=== PATIENT | male | born 1975 | race Caucasian/White ===

== ENCOUNTER 2021-02-04 18:38 | Emergency (ER) | payer SELFPAY ==
--- NOTE | 2021-02-04 19:58 | EDPHYS ---
Physician Documentation [facility] Name: Michel Brown Age: 45 yrs Sex: Male : 1975 Arrival Date: 02/04/2021 Time: 18:40 Bed 13 Private MD: ED Physician Mike Goodman HPI: 02/04 19:56 This 45 yrs old Male presents to ER via Ambulatory with complaints of pm1 Shingles. 19:56 The patient's rash thought to be caused by an unknown cause. The rash is located on the pm1 left elbow. The rash can be described as vesicular. Onset: The symptoms/episode began/occurred 2 day(s) ago. Associated signs and symptoms: Pertinent positives: itching, Pain Pertinent negatives: nausea, vomiting. Severity of symptoms: in the emergency department the symptoms are unchanged Pain is currently a 5 / 10. Treatment given at home: None. The patient has not experienced similar symptoms in the past. The patient has not recently seen a physician. Historical: - Allergies: 18:57 No Known Allergies; ca1 - Home Meds: 18:57 None [Active]; ca1 - PMHx: 18:57 None; ca1 - PSHx: 18:57 None; ca1 - Immunization history:: Client reports having NOT received the Covid vaccine. Flu vaccine is not up to date. - Social history:: Smoking status: Patient reports the use of cigarette tobacco products, smokes one-half pack cigarettes per day. ROS: 19:56 Constitutional: Negative for fever, chills, and weight loss, Eyes: Negative for injury, pm1 pain, redness, and discharge, ENT: Negative for injury, pain, and discharge, Cardiovascular: Negative for chest pain, palpitations, and edema, Respiratory: Negative for shortness of breath, cough, wheezing, and pleuritic chest pain, Abdomen/GI: Negative for abdominal pain, nausea, vomiting, diarrhea, and constipation, Back: Negative for injury and pain, MS/Extremity: Negative for injury and deformity. 19:56 Neuro: Negative for headache, weakness, numbness, tingling, and seizure. 19:56 Skin: Positive for rash, of the left elbow. Exam: 19:56 Constitutional: This is a well developed, well nourished patient who is awake, alert, pm1 and in no acute distress. Head/Face: Normocephalic, atraumatic. 19:56 Eyes: Exam is negative for Extraocular movements: no acute changes, Conjunctiva: normal. 19:56 ENT: Mouth: Lips: normal, Oral mucosa: normal, pink and intact, moist. 19:56 Cardiovascular: Rate: normal, Rhythm: regular, Pulses: no pulse deficits are appreciated. 19:56 Respiratory: Exam negative for acute changes, respiratory distress, shortness of breath. 19:56 Skin: Appearance: normal except for affected area, consistent with zoster, on the left elbow. 19:56 Neuro: Orientation: is normal, Mentation: is normal, Motor: is normal, moves all fours, Sensation: is normal, no obvious gross deficits. Vital Signs: 18:56 BP 128 / 89; Pulse 97; Resp 18 S; Temp 97.8(TE); Pulse Ox 99% on R/A; Weight 87.09 kg ca1 (R); Height 6 ft. 2 in. (187.96 cm) (R); Pain 6/10; 18:56 Body Mass Index 24.65 (87.09 kg, 187.96 cm) ca1 MDM: 19:45 Patient medically screened. pm1 19:56 Data reviewed: vital signs. Data interpreted: Pulse oximetry: on room air is 99 %. pm1 Interpretation: normal. Counseling: I had a detailed discussion with the patient and/or guardian regarding: the historical points, exam findings, and any diagnostic results supporting the discharge/admit diagnosis, the need for outpatient follow up, a family practitioner, to return to the emergency department if symptoms worsen or persist or if there are any questions or concerns that arise at home. Administered Medications: 20:00 Drug: predniSONE 60 mg Route: PO; rr5 20:08 Follow up: Response: Medication administered at discharge. rr5 20:00 Drug: valACYclovir 1000 mg Route: PO; rr5 20:08 Follow up: Response: Medication administered at discharge. rr5 20:00 Drug: Benadryl (diphenhydrAMINE) 25 mg Route: PO; rr5 20:08 Follow up: Response: Medication administered at discharge. rr5 Disposition: 02/04/21 19:58 Discharged to Home. Impression: Zoster [herpes zoster]. - Condition is Stable. - Discharge Instructions: Shingles. - Prescriptions for Valtrex 1 g Oral Tablet - take 1 tablet by ORAL route every 8 hours for 7 days; 21 tablet. Medrol (Steve) 4 mg Oral Tablets, Dose Pack - take 1 tablet by ORAL route as directed - follow package instructions; 1 packet. - Medication Reconciliation Form, Thank You Letter, Antibiotic Education, Prescription Opioid Use form. - Follow up: Emergency Department; When: As needed; Reason: Worsening of condition. Follow up: Private Physician; When: 2 - 3 days; Reason: Recheck today's complaints, Continuance of care, Re-evaluation by your physician. - Problem is new. - Symptoms have improved. Signatures: Zak Blount NP COMPLIANCE OFFICER pm1 You Kohli RN RN rr5 Marlin Mueller RN RN ca1 Corrections: (The following items were deleted from the chart) 20:08 19:58 02/04/2021 19:58 Discharged to Home. Impression: Zoster [herpes zoster]. rr5 Condition is Stable. Forms are Medication Reconciliation Form, Thank You Letter, Antibiotic Education, Prescription Opioid Use. Follow up: Emergency Department; When: As needed; Reason: Worsening of condition. Follow up: Private Physician; When: 2 - 3 days; Reason: Recheck today's complaints, Continuance of care, Re-evaluation by your physician. Problem is new. Symptoms have improved. pm1
--- NOTE | 2021-02-04 19:58 | ER ---
Nurse's Notes [facility] Name: Michel Brown Age: 45 yrs Sex: Male : 1975 Arrival Date: 02/04/2021 Time: 18:40 Bed 13 Private MD: Diagnosis: Zoster [herpes zoster] Presentation: 02/04 18:56 Chief complaint: Patient states: Rash on L inner arm, chest and stomach x 2 days. ca1 Coronavirus screen: Client denies travel out of the [place] in the last 14 days. At this time, the client does not indicate any symptoms associated with coronavirus-19. Ebola Screen: Patient negative for fever greater than or equal to 101.5 degrees Fahrenheit, and additional compatible Ebola Virus Disease symptoms Patient denies exposure to infectious person. Patient denies travel to an Ebola-affected area in the 21 days before illness onset. No symptoms or risks identified at this time. Initial Sepsis Screen: Does the patient meet any 2 criteria? No. Patient's initial sepsis screen is negative. Does the patient have a suspected source of infection? No. Patient's initial sepsis screen is negative. Risk Assessment: Do you want to hurt yourself or someone else? Patient reports no desire to harm self or others. Onset of symptoms was February 04, 2021. 18:56 Method Of Arrival: Ambulatory ca1 18:56 Acuity: ZORAIDA 4 ca1 Historical: - Allergies: 18:57 No Known Allergies; ca1 - Home Meds: 18:57 None [Active]; ca1 - PMHx: 18:57 None; ca1 - PSHx: 18:57 None; ca1 - Immunization history:: Client reports having NOT received the Covid vaccine. Flu vaccine is not up to date. - Social history:: Smoking status: Patient reports the use of cigarette tobacco products, smokes one-half pack cigarettes per day. Screenin:07 Abuse screen: Denies threats or abuse. Denies injuries from another. Nutritional rr5 screening: No deficits noted. Tuberculosis screening: No symptoms or risk factors identified. Fall Risk None identified. Total Agee Fall Scale indicates No Risk (0-24 pts). Assessment: 20:00 General: Appears in no apparent distress. comfortable, Behavior is calm, cooperative, rr5 appropriate for age. Pain: Complains of pain in left elbow. Neuro: Level of Consciousness is awake, alert, obeys commands, Oriented to person, place, time. Cardiovascular: Capillary refill < 3 seconds Patient's skin is warm and dry. Respiratory: Airway is patent Respiratory effort is even, unlabored, Respiratory pattern is regular, symmetrical. Derm: Skin temperature is warm Rash noted that is macular, itchy, red, raised, on left elbow. 20:07 Reassessment: Patient appears in no apparent distress at this time. Patient is alert, rr5 oriented x 3, equal unlabored respirations, skin warm/dry/pink. discharge instruction given and explained without complaints made. Vital Signs: 18:56 BP 128 / 89; Pulse 97; Resp 18 S; Temp 97.8(TE); Pulse Ox 99% on R/A; Weight 87.09 kg ca1 (R); Height 6 ft. 2 in. (187.96 cm) (R); Pain 6/10; 18:56 Body Mass Index 24.65 (87.09 kg, 187.96 cm) ca1 ED Course: 18:40 Patient arrived in ED. mr 18:57 Triage completed. ca1 18:57 Arm band placed on right wrist. ca1 19:37 Zak Blount NP is PHCP. pm1 19:37 Mike Goodman MD is Attending Physician. pm1 20:00 You Kohli RN is Primary Nurse. rr5 20:00 Patient has correct armband on for positive identification. Bed in low position. rr5 20:00 No provider procedures requiring assistance completed. Patient did not have IV access rr5 during this emergency room visit. Administered Medications: 20:00 Drug: predniSONE 60 mg Route: PO; rr5 20:08 Follow up: Response: Medication administered at discharge. rr5 20:00 Drug: valACYclovir 1000 mg Route: PO; rr5 20:08 Follow up: Response: Medication administered at discharge. rr5 20:00 Drug: Benadryl (diphenhydrAMINE) 25 mg Route: PO; rr5 20:08 Follow up: Response: Medication administered at discharge. rr5 Outcome: 19:58 Discharge ordered by . pm1 20:00 Discharged to home ambulatory, with family. rr5 20:00 Condition: stable 20:00 Discharge instructions given to patient, Instructed on discharge instructions, follow up and referral plans. medication usage, Demonstrated understanding of instructions, follow-up care, medications, Prescriptions given X 2. 20:08 Patient left the ED. rr5 Signatures: Karine Santizo MineZak, [employer] PLANT OPERATOR [employer] POWER PLANT OPERATOR pm1 You Kohli, RN RN rr5 Marlin Mueller RN RN ca1
[2021-02-04] MEDS ORDERED: predniSONE 20 MG TAB ONE (20:18)
[2021-02-04] MEDS ORDERED: DIPHENHYDRAMINE 25 MG TAB/CAP ONE (20:18)
[2021-02-04] MEDS ORDERED: VALACYCLOVIR 500 MG TAB ONE (20:19)
[2021-02-04 20:33] VITALS: BP 128/89; TEMP 97.8; O2SAT 99
== END 2021-02-04 20:08 | disposition home or self-care (01) ==
LOC: ER 18:38
DX: B02.9 Zoster without complications (principal); F17.210 Nicotine dependence, cigarettes, uncomplicated
CPT/HCPCS: 99283; J7512

== ENCOUNTER 2021-09-21 14:14 | Inpatient (IN) | payer OTHER, SELFPAY ==
[2021-09-21] MEDS ORDERED: MIDAZOLAM HCL 2 MG/2 ML INJ ONE ×2 (14:23)
[2021-09-21] MEDS ORDERED: NA CHLORIDE 0.9% 1,000 ML ONE (14:37)
[2021-09-21] MEDS ORDERED: TETANUS & DIPHTHERIA TOX,ADULT 0.5 ML VIAL ONE (14:37)
[2021-09-21] MEDS ORDERED: levETIRAcetam 1,000 MG in NA CHLORIDE 0.9% 100 ML IV ONE (14:45)
[2021-09-21 14:47] LABS: Absolute Lymphocytes (CBC) 2.1 K/uL (0.7-4.9); Hematocrit 40.8 % (39.6-49.0); Lymphocytes % 22.2 % (15.3-44.8); MPV 7.1 fL (7.6-11.3); RBC Red Blood Cell Count 4.48 M/uL (4.33-5.43)
[2021-09-21 15:06] LABS: Potassium 4.6 mmol/L (3.5-5.1)
[2021-09-21] MEDS ORDERED: propofoL 1,000 MG/100 ML VIAL IV ONE (15:37)
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
--- NOTE | 2021-09-21 16:07 | RAD REPORT ---
EXAM DESCRIPTION: Franck Single View09/21/2021 3:57 pm CLINICAL HISTORY: Device placement endotracheal tube placement IMPRESSION: An endotracheal tube has been inserted with its tip 2.9 centimeters above the top of the aortic arch. Nasogastric tube within the proximal stomach. Bilateral lower lobe atelectasis
--- NOTE | 2021-09-21 16:07 | RAD REPORT ---
EXAM DESCRIPTION: Franck Single View09/21/2021 3:57 pm CLINICAL HISTORY: Device placement endotracheal tube placement IMPRESSION: An endotracheal tube has been advanced. The tip lies 1.5 centimeters above the top of th e aortic arch. Nasogastric tube with its tip in the proximal stomach
[2021-09-21] MEDS ORDERED: LORazepam 2 MG/ML VIAL ONE ×2 (16:20→17:51)
[2021-09-21] MEDS ORDERED: KETAMINE HCL 500 MG/5 ML VIAL ONE (17:18)
[2021-09-21 17:25] LABS: Urine Blood Negative (Negative); Urine Glucose Negative (Negative); Urine Protein Negative (Negative); Urine Specific Gravity 1.015 (1.005-1.030); Urine pH 7.5 (5.0-7.0)
[2021-09-21 17:50] LABS: Barbiturates NEGATIVE (NEGATIVE); Benzodiazepines POSITIVE (NEGATIVE); Cocaine NEGATIVE (NEGATIVE); METHAMPHETAM POSITIVE (NEGATIVE); Methadone NEGATIVE (NEGATIVE); Opiates NEGATIVE (NEGATIVE); Phencyclidine NEGATIVE (NEGATIVE); THC Cannibis POSITIVE (NEGATIVE)
[2021-09-21 18:35] LABS: Protime INR 0.98
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
[2021-09-21 18:54] LABS: ALT/SGPT 30 U/L (12-78); AST/SGOT 17 U/L (15-37); Albumin 3.5 g/dL (3.4-5.0); Alkaline Phosphatase 82 U/L (45-117); Bilirubin Direct < 0.1 mg/dL (0-0.2); Bilirubin Total 0.2 mg/dL (0.2-1.0); Protein, Total 7.2 g/dL (6.4-8.2)
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
[2021-09-21] MEDS: D5.45NS W/KCL 20MEQ 1,000 ML IV SCH (19:30)
[2021-09-21] MEDS ORDERED: ONDANSETRON 4 MG/2 ML VIAL IV PRN (19:30)
[2021-09-21] MEDS ORDERED: ZIPRASIDONE MESYLA 20 MG/VIAL IM PRN (19:30)
[2021-09-21] MEDS ORDERED: WATER FOR INJ,STERILE 10 ML IM PRN (19:30)
[2021-09-21] MEDS ORDERED: MORPHINE 2 MG/ML SYR IV PRN (19:37)
[2021-09-21] MEDS ORDERED: LEVETIRACETAM 500 MG/5 ML VIAL IV ONE (19:40)
[2021-09-21] MEDS ORDERED: D5.45NS W/KCL 20MEQ 1,000 ML IV ONE (19:41)
[2021-09-21] MEDS ORDERED: ZIPRASIDONE MESYLA 20 MG/VIAL IM ONE (19:41)
[2021-09-21] MEDS ORDERED: NA CHLORIDE 0.9% 100 ML ONE ×2 (19:41→19:46)
[2021-09-21] MEDS: levETIRAcetam 500 MG in NA CHLORIDE 0.9% 100 ML IV SCH (20:59)
[2021-09-21] MEDS: LORazepam 2 MG/ML VIAL IV PRN (21:33)
[2021-09-21 21:42] VITALS: BMI 22.7
[2021-09-22] MEDS: LORazepam 2 MG/ML VIAL IV PRN (01:15)
[2021-09-22] MEDS ORDERED: ZIPRASIDONE MESYLA 20 MG/VIAL IM ONE (01:41)
[2021-09-22 05:33] LABS: Urine Appearance CLOUDY (Clear); Urine Bilirubin NEGATIVE (Negative); Urine Blood 3+ (Negative); Urine Color YELLOW (Yellow); Urine Glucose NEGATIVE (Negative); Urine Protein NEGATIVE (Negative); Urine Specific Gravity >=1.030 (1.005-1.030); Urine Urobilinogen 0.2 mg/dL (0.2-1.0); Urine pH 5.5 (5.0-7.0)
[2021-09-22 05:36] LABS: Absolute Lymphocytes (CBC) 2.1 K/uL (0.7-4.9); MPV 7.3 fL (7.6-11.3); RBC Red Blood Cell Count 4.35 M/uL (4.33-5.43)
[2021-09-22 05:43] LABS: Urine Microscopic Reflex ORDER UMIC
[2021-09-22] MEDS: D5.45NS W/KCL 20MEQ 1,000 ML IV SCH (05:54)
[2021-09-22 06:01] LABS: Urine Bacteria <20 /HPF (NONE SEEN); Urine RBC >50 /HPF (NONE SEEN); Urine Urothelial Cells <5 /HPF (NONE SEEN)
[2021-09-22 06:11] LABS: ALT/SGPT 24 U/L (12-78); AST/SGOT 15 U/L (15-37); Alkaline Phosphatase 77 U/L (45-117); BUN Blood Urea Nitrogen 13 mg/dL (7-18); Bicarbonate 27 mmol/L (21-32); Bilirubin Total 0.5 mg/dL (0.2-1.0); Creatine Phosphokinase 269 U/L (39-308); Glucose Level 94 mg/dL (74-106); HDL Cholesterol 40 mg/dL (40-60); LDL Cholesterol, Calculated 103 (<130); Magnesium 2.4 mg/dL (1.8-2.4); Potassium 4.1 mmol/L (3.5-5.1); Protein, Total 6.3 g/dL (6.4-8.2); Sodium Level 139 mmol/L (136-145)
[2021-09-22] MEDS ORDERED: ENOXAPARIN 40 MG/0.4 ML SQ SCH (09:00)
[2021-09-22] MEDS: levETIRAcetam 500 MG in NA CHLORIDE 0.9% 100 ML IV SCH (09:00)
[2021-09-22 09:20] VITALS: O2SAT 98
[2021-09-22 11:42] VITALS: TEMP 97.2
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
[2021-09-22 14:33] VITALS: BP 105/69
== END 2021-09-22 13:30 | disposition left against medical advice (07) | DRG 101 ==
LOC: ER 14:14 → ERHOLD 19:01 → 3RD-ICU 20:57
PROVIDERS: ADMIT Hospitalist; ATTEND Hospitalist
DX: R56.9 Unspecified convulsions (principal); R41.82 Altered mental status, unspecified; F15.10 Other stimulant abuse, uncomplicated; F12.10 Cannabis abuse, uncomplicated; S00.211A Abrasion of right eyelid and periocular area, initial encounter; V47.5XXA Car driver injured in collision with fixed or stationary object in traffic accident, initial encounter; Z20.822 Contact with and (suspected) exposure to COVID-19; Z53.29 Procedure and treatment not carried out because of patient's decision for other reasons
CPT/HCPCS: 36415; 51702; 70450; 71045; 71260; 72125; 74177; 80048; 80053; 80061; 80076; 80307; 80320; 80329; 81003; 81015; 82550; 83735; 84439; 84443; 85025; 85610; 85730; 86850; 86900; 86901; 87086; 87088; 90471; 90714; 93005; 99291; 99292; G0390; J1953; J2250; J2270; J2704; J3486; J7030; Q9967; U0003

== ENCOUNTER 2024-11-24 16:31 | Emergency (ER) | payer SELFPAY ==
--- OUTSIDE RECORDS SUMMARY | 2024-11-24 16:34 | XMS REPORT | Continuity of Care Document ---
Author Name Unknown Address [address] [place] [address] [address] [place] [address] [facility] Address [address] [facility] [place] [address] Care Team Providers Care Supervisor Ore Dressing Name Role Phone GABI JULIEN Attending Clinician Unavailable KAMRYN GAN Attending Clinician Unavailable Encounters Start Date/Time End Date/Time Encounter Type Admission Type Attending Clinicians Care Facility Care Department Encounter ID Source 2023-09-21 16:37:00 2023-09-21 17:26:00 Emergency ER GABI JULIEN [facility] [id number] [facility] 2023-09-06 23:54:00 2023-09-07 02:12:00 Emergency ER KAMRYN GAN [facility] [id number] [facility]
--- NOTE | 2024-11-24 16:54 | ER ---
Nurse's Notes [facility] Name: Michel Brown II Age: 49 yrs Sex: Male : 1975 Arrival Date: 11/24/2024 Time: 16:31 Bed Waiting Private MD: Diagnosis: Cellulitis of face Presentation: 11/24 16:51 Chief complaint: Patient states: Abrasion to right eyebrow - swelling to right eye now. ld1 Coronavirus screen: At this time, the client does not indicate any symptoms associated with coronavirus-19. Ebola Screen: No symptoms or risks identified at this time. Initial Sepsis Screen: Does the patient meet any 2 criteria? No. Patient's initial sepsis screen is negative. Does the patient have a suspected source of infection? No. Patient's initial sepsis screen is negative. Risk Assessment: Do you want to hurt yourself or someone else? Patient reports no desire to harm self or others. Onset of symptoms was November 24, 2024. 16:51 Method Of Arrival: Ambulatory ld1 16:51 Acuity: ZORAIDA 4 ld1 Triage Assessment: 16:51 General: Appears in no apparent distress. comfortable, Behavior is calm, cooperative, ld1 appropriate for age. Pain: Complains of pain in right eye Pain does not radiate. Pain currently is 5 out of 10 on a pain scale. Quality of pain is described as throbbing, Pain began suddenly, Is continuous. EENT: No signs and/or symptoms were reported regarding the EENT system. EENT: Reports swelling to right eye. Neuro: Level of Consciousness is awake, alert, obeys commands, Oriented to person, place, time, situation. Cardiovascular: Capillary refill < 3 seconds Patient's skin is warm and dry. Respiratory: Airway is patent Respiratory effort is even, unlabored. GI: Abdomen is flat, non-distended. : No signs and/or symptoms were reported regarding the genitourinary system. Derm: No signs and/or symptoms reported regarding the dermatologic system. Musculoskeletal: No signs and/or symptoms reported regarding the musculoskeletal system. Historical: - Allergies: 16:51 No Known Allergies; ld1 - Home Meds: 16:51 None [Active]; ld1 - PMHx: 16:51 None; ld1 - PSHx: 16:51 None; ld1 - Immunization history:: Adult Immunizations up to date. - Infectious Disease History:: Denies. - Social history:: Smoking status: Patient denies any tobacco usage or history of. - Family history:: not pertinent. - Hospitalizations: : No recent hospitalization is reported. Screenin:[facility] ED Fall Risk Assessment (Adult) History of falling in the last 3 months, ld1 including since admission No falls in past 3 months (0 pts) Confusion or Disorientation No (0 pts) Intoxicated or Sedated No (0 pts) Impaired Gait No (0 pts) Mobility Assist Device Used No (0 pt) Altered Elimination No (0 pt) Score/Fall Risk Level 0 - 2 = Low Risk Oriented to surroundings, Hourly rounding (assess needs \T\ fall precautionary measures) done. Abuse screen: Denies threats or abuse. Denies injuries from another. Nutritional screening: No deficits noted. Tuberculosis screening: No symptoms or risk factors identified. Assessment: 16:53 Reassessment: See triage assessment. ld1 Vital Signs: 16:51 BP 120 / 75; Pulse 84; Resp 18; Temp 98.6(TE); Pulse Ox 99% on R/A; Weight 79.38 kg; ld1 Height 6 ft. 2 in. ; Pain 5/10; 16:51 Body Mass Index 22.47 (79.38 kg, 187.96 cm) ld1 16:51 Pain Scale: Adult ld1 ED Course: 16:36 Patient arrived in ED. al6 16:42 Foreign Subramanian MD is Attending Physician. rn 16:51 Arm band placed on right wrist. ld1 16:52 Triage completed. ld1 16:53 Patient has correct armband on for positive identification. Placed in gown. Bed in low ld1 position. Call light in reach. Side rails up X2. Provided Education on: wound care. Pulse ox on. NIBP on. Door closed. Noise minimized. Warm blanket given. 16:53 No provider procedures requiring assistance completed. Patient did not have IV access ld1 during this emergency room visit. Administered Medications: 16:58 Drug: Trimethoprim-Sulfamethoxazole PO (160 mg-800 mg (DS) 1 tablet PO once Route: PO; ld1 16:58 Drug: Cephalexin PO 500 mg PO once Route: PO; ld1 Medication: 16:53 VIS not applicable for this client. ld1 Outcome: 16:53 Discharge ordered by . rn 16:58 Discharged to home ambulatory, ld1 16:58 Condition: stable 16:58 Discharge instructions given to patient, Instructed on discharge instructions, follow up and referral plans. medication usage, Demonstrated understanding of instructions, follow-up care, medications, Prescriptions given X 2, 16:59 Patient left the ED. ld1 Signatures: Foreign Subramanian MD MD rn Sims, Lauren, RN RN ld1 Magdalena Johansen Corrections: (The following items were deleted from the chart) 16:51 16:51 Allergies: Unable to obtain; ld1 ld1 16:51 16:51 PSHx: Unable to Obtain; ld1 ld1
--- NOTE | 2024-11-24 16:54 | EDPHYS ---
Physician Documentation [facility] Name: Michel Brown II Age: 49 yrs Sex: Male : 1975 Arrival Date: 11/24/2024 Time: 16:31 Bed Waiting Private MD: ED Physician Foreign Subramanian HPI: 11/24 16:51 This 49 yrs old Male presents to ER via Unassigned with complaints of Eye Swelling. rn 16:51 Onset: The symptoms/episode began/occurred yesterday. Aggravated by nothing. Alleviated rn by nothing. Severity of symptoms: At their worst the symptoms were mild in the emergency department the symptoms are worse. Patient reports working in his car and hit his right brow 2 days ago. Now has increased swelling and tenderness around the brow and eyelid. Reports eyeball itself is fine. Vision is fine. No drainage. No fever or chills.. Historical: - Allergies: 16:51 No Known Allergies; ld1 - Home Meds: 16:51 None [Active]; ld1 - PMHx: 16:51 None; ld1 - PSHx: 16:51 None; ld1 - Immunization history:: Adult Immunizations up to date. - Infectious Disease History:: Denies. - Social history:: Smoking status: Patient denies any tobacco usage or history of. - Family history:: not pertinent. - Hospitalizations: : No recent hospitalization is reported. ROS: 16:51 Constitutional: Negative for fever, chills, and weight loss, Eyes: Positive for right rn brow swelling and pain Exam: 16:51 Constitutional: This is a well developed, well nourished patient who is awake, alert, rn and in no acute distress. Head/Face: Normocephalic, atraumatic. 16:51 Eyes: Right periorbital and brow swelling with tenderness. No fluctuance. Mild rn warmth and erythema. Vital Signs: 16:51 BP 120 / 75; Pulse 84; Resp 18; Temp 98.6(TE); Pulse Ox 99% on R/A; Weight 79.38 kg; ld1 Height 6 ft. 2 in. ; Pain 5/10; 16:51 Body Mass Index 22.47 (79.38 kg, 187.96 cm) ld1 16:51 Pain Scale: Adult ld1 MDM: 16:42 Medical Screening Exam initiated rn 16:51 Differential diagnosis: Periorbital cellulitis. Data reviewed: vital signs, nurses rn notes, and as a result, I will discharge patient. Counseling: I had a detailed discussion with the patient and/or guardian regarding the historical points, exam findings, and any diagnostic results supporting the discharge/admit diagnosis, the need for outpatient follow up, to return to the emergency department if symptoms worsen or persist or if there are any questions or concerns that arise at home. Special discussion: I discussed with the patient/guardian in detail that at this point there is no indication for admission to the hospital. It is understood, however, that if the symptoms persist or worsen the patient needs to return immediately for re-evaluation. Administered Medications: 16:58 Drug: Trimethoprim-Sulfamethoxazole PO (160 mg-800 mg (DS) 1 tablet PO once Route: PO; ld1 16:58 Drug: Cephalexin PO 500 mg PO once Route: PO; ld1 Disposition Summary: 11/24/24 16:53 Discharge Ordered Notes: Location: Home rn Problem: new rn Symptoms: are unchanged rn Condition: Stable rn Diagnosis - Cellulitis of face rn Followup: rn - With: Private Physician - When: As needed - Reason: Recheck today's complaints, Re-evaluation by your physician Discharge Instructions: - Discharge Summary Sheet rn - Cellulitis, Adult rn Forms: - Medication Reconciliation Form rn - Antibiotic magazine journalist - Prescription Opioid Use rn - Patient Portal Instructions rn - Leadership Thank You Letter rn - Work release form ld1 Prescriptions: - Cephalexin 500 mg Oral Capsule - take 1 capsule ORAL route every 12 hours for 10 days; 20 capsule; Refills: 0, rn Product Selection Permitted - Bactrim DS 800-160 mg Oral Tablet - take 1 tablet ORAL route every 12 hours for 10 days; 20 tablet; Refills: 0, rn Product Selection Permitted Signatures: Foreign Subramanian MD MD rn Sims, Lauren, RN RN ld1 Corrections: (The following items were deleted from the chart) 16:51 16:51 Allergies: Unable to obtain; ld1 ld1 16:51 16:51 PSHx: Unable to Obtain; ld1 ld1 16:53 16:51 Constitutional: Negative for fever, chills, and weight loss, Eyes: Right rn periorbital and brow swelling with tenderness. No fluctuance. Mild warmth and erythema. rn
[2024-11-24] MEDS ORDERED: SMZ./TMP. 800/160 MG TABLET ONE (16:56)
[2024-11-24] MEDS ORDERED: CEPHALEXIN 250 MG CAP ONE (16:56)
[2024-11-24 17:09] VITALS: BP 120/75; TEMP 98.6; O2SAT 99
== END 2024-11-24 16:59 | disposition home or self-care (01) ==
LOC: ER 16:31
DX: L03.211 Cellulitis of face (principal)
CPT/HCPCS: 99283